=== PATIENT | female | born 1990 | race Caucasian/White ===

== ENCOUNTER 2019-12-25 17:11 | Emergency (ER) | payer SELFPAY ==
[2019-12-25 17:12] VITALS: TEMP 99
[2019-12-25 17:34] LABS: COLLECTION METHOD CLEAN CATCH
[2019-12-25 17:45] LABS: MUCOUS Present /lpf; PH 5 (5-8); URINE APPEARANCE Cloudy; URINE BACTERIA Rare /hpf; URINE BILIRUBIN Negative (NEGATIVE); URINE BLOOD Negative (NEGATIVE); URINE COLOR Amber; URINE GLUCOSE Negative (NEGATIVE); URINE KETONE Negative (NEGATIVE); URINE LEUKOCYTE ESTERASE Negative (NEGATIVE); URINE NITRATE Negative (NEGATIVE); URINE PROTEIN(semi-quant) 2+ (NEGATIVE); URINE UROBILINOGEN Negative (NEGATIVE)
[2019-12-25] MEDS ORDERED: MOTRIN 800800 MG/TAB PO (18:25)
[2019-12-25] MEDS ORDERED: FLEXERIL 1010 MG/TAB PO (18:25)
[2019-12-25 18:46] VITALS: BP 153/90; PULSE 103
== END 2019-12-25 18:46 | disposition home or self-care (01) ==
LOC: COL.ER 17:11
PROVIDERS: Emergency Medicine
DX: S13.4XXA Sprain of ligaments of cervical spine, initial encounter (principal); R40.2412 Glasgow coma scale score 13-15, at arrival to emergency department; V43.52XA Car driver injured in collision with other type car in traffic accident, initial encounter